=== PATIENT | female | born 1990 | race Caucasian/White ===

== ENCOUNTER 2019-10-20 18:11 | Emergency (ER) | payer BC ==
[~2019-10-20] VITALS: Ht 160 cm; Wt 56.7 kg
--- NOTE | 2019-10-20 18:13 | NUR ---
PT IS IN ROOM #2B UNDER DIRECT OBSERVATION OF DILSAHD WALLACE. DR SILVERIO EVALUATED THE PT.
--- NOTE | 2019-10-20 18:36 | NUR ---
DR COATES TALKED TO THE PT.
[2019-10-20 19:02] LABS: BASOPHILS % (AUTO) 0.3 % (0.0-2.0); EOSINOPHILS % (AUTO) 0.2 % (0.0-7.0); HEMATOCRIT 37.5 % (31.2-41.9); HEMOGLOBIN 12.6 g/dL (10.9-14.3); LYMPHOCYTES # (AUTO) 1.7 K/uL (20.0-40.0); LYMPHOCYTES % (AUTO) 19.3 % (20.5-51.5); MEAN CORPUSCULAR HEMOGLOBIN 30.3 uug (24.7-32.8); MEAN CORPUSCULAR HGB CONC 34 g/dL (32.3-35.6); MEAN CORPUSCULAR VOLUME 90.2 fL (75.5-95.3); MONOCYTES # (AUTO) 0.6 K/uL (2.0-10.0); MONOCYTES % (AUTO) 7.1 % (0.0-11.0); NEUTROPHILS # (AUTO) 6.3 K/uL (1.8-8.9); NEUTROPHILS % (AUTO) 73.1 % (38.5-71.5); PLATELET COUNT (AUTO) 283 K/uL (179-408); RED BLOOD CELL COUNT(AUTO) 4.15 MIL/uL (3.63-4.92); WHITE BLOOD COUNT (AUTO) 8.7 K/uL (3.8-11.8)
[2019-10-20 19:09] LABS: CARBON DIOXIDE 30 mmol/L (21-32); CHLORIDE 102 mmol/L (98-107); POTASSIUM 3.5 mmol/L (3.5-5.1)
[2019-10-20 19:15] LABS: ALANINE AMINOTRANSFERASE 14 U/L (14-59); ALKALINE PHOSPHATASE 45 U/L (50-136); ASPARTATE AMINOTRANSFERASE 12 U/L (15-37); BILIRUBIN,DIRECT 0.1 mg/dL (0.0-0.2); BILIRUBIN,TOTAL 0.6 mg/dL (0.2-1.0); CREATININE 0.8 mg/dL (0.6-1.3); GLUCOSE 100 mg/dL (74-106); TOTAL PROTEIN, SERUM 7.5 g/dL (6.4-8.2); UREA NITROGEN, BLOOD 7 mg/dL (7-18)
[2019-10-20] MEDS ORDERED: IV NORMAL SALINE 1000 ML BAG IV ONE (19:15)
[2019-10-20 19:16] LABS: ACETAMINOPHEN < 2.0 ug/mL (10-30)
--- NOTE | 2019-10-20 19:17 | NUR ---
REPORT GIVEN TO SOCIAL SERVICE LIAISON DILSHAD DRIVER.
[2019-10-20 19:19] LABS: ETHANOL < 3 MG/DL (0-0)
--- NOTE | 2019-10-20 19:45 | NUR ---
Andreas Krishna at bedside to evaluate patient
--- NOTE | 2019-10-20 21:30 | NUR ---
Patient sleeping but easily arousable. Patient A&O x3. Breathing even and unlabored. Denies any pain or discomfort at this time
--- NOTE | 2019-10-20 23:05 | NUR ---
Spoke with Mayito from central intake. per Mayito, no beds available at this time. will call back when a bed becomes available
--- NOTE | 2019-10-21 00:30 | NUR ---
Patient AAOx4. offered fluids. patient declined. patient states she wants to go to sleep. suicide precautions still implemented. 1:1 sitter at bedside. s/r up x2. bed low. Denies any pain or discomfort at this time
--- NOTE | 2019-10-21 02:48 | NUR ---
1:1 still at bedside at this time.
--- NOTE | 2019-10-21 02:48 | NUR ---
Patient AA&O x4. Patient able to recall some information about what happened FUR GRADER to ED. offered fluids and able to tolerate. Speech is clear and able to make needs known / follow commands. Denies any pain or discomfort at this time
--- NOTE | 2019-10-21 04:49 | NUR ---
Patient sleeping but easily arousable. Breathing even and unlabored. NAD noted. no 1:1 sitter available. frequent visual check done.
--- NOTE | 2019-10-21 05:20 | NUR ---
transferred to room 3a, NEAR NURSES' STATION pt awake and alert RA DILIP STILL ON 5150 HOLD FOR SI 1ON1 SITTER AT BEDSIDE PT STATES SHE WANTS TO BE RE-EVALUATED IN THE MORNING PT STATES SHE HAS A FLIGHT ON SATURDAY REORIENTED REDIRECTED KEPT WARM DRY AND COMFORTABLE
--- NOTE | 2019-10-21 05:32 | NUR ---
MIRANDA GALDAMEZ(PLACEMENT) ON THE PHONE WITH OWEN YUNG
--- NOTE | 2019-10-21 05:54 | NUR ---
RADHA LOVE ON THE PHONE ([facility]) [phone] RECEIVING PHYSICIAN: DR PUGH PENDING S
--- NOTE | 2019-10-21 06:06 | NUR ---
Spoke with Karen from [facility] to transport patient approx [phone]. Trip #[id number]
--- NOTE | 2019-10-21 06:06 | NUR ---
Spoke with Nikko for patient to be admitted to [facility], [place] under care of Dr. Palafox
[2019-10-21 06:30] LABS: *BILIRUBIN,URIN NEGATIVE (NEGATIVE); *BLOOD, URINE NEGATIVE (NEGATIVE); *CLARITY,URINE SLIGHTLY CLOUDY (CLEAR); *COLOR,URINE YELLOW (YELLOW); *KETONES,URINE NEGATIVE (NEGATIVE); *UROBILINOGEN,URINE 0.2 E.U./dl (NORMAL); LEUKOCYTE ESTERASE ,URINE NEGATIVE (NEGATIVE); NITRITE, URINE NEGATIVE (NEGATIVE); UGLUCOSE NEGATIVE (NEGATIVE)
[2019-10-21 06:35] LABS: *URINE HCG, QUAL NEGATIVE (NEGATIVE)
[2019-10-21 06:47] LABS: BACTERIA,URINE MODERATE /HPF (NONE SEEN); MUCUS,URINE MODERATE /LPF (0-FEW); RBC,URINE NONE SEEN /HPF (0-3); SQUAMOUS EPITHELIAL CELL,UR MODERATE /HPF (NONE SEEN); WBC,URINE 0-3 /HPF (0-3)
--- NOTE | 2019-10-21 07:01 | NUR ---
MARY RAYA ON THE PHONE WITH ERM PER PT REQUEST FOR RE-EVALUATION THIS MORNING
--- NOTE | 2019-10-21 07:10 | NUR ---
MARY RAYA STATES FOR PT TO REMAIN ON 5150 H STILL TO BE PICKED UP AT 0730 HAND OFF AND SBAR GIVEN TO INCOMING DAY SHIFT RN SI PREC STILL IN PLACE
[2019-10-21 07:29] LABS: *AMPHETAMINE, URINE NEGATIVE (NEGATIVE); *BARBITURATE, URINE NEGATIVE (NEGATIVE); *CANNABINOID, URINE NEGATIVE (NEGATIVE); *COCCAINE, URINE NEGATIVE (NEGATIVE); *OPIATE, URINE NEGATIVE (NEGATIVE); *PHENCYCLIDINE SCREEN,URINE NEGATIVE (NEGATIVE)
--- NOTE | 2019-10-21 07:35 | NUR ---
Hospital breakfast tray provided, Pt ate w/ moderate appetite.
--- NOTE | 2019-10-21 08:02 | NUR ---
Report given to transport consulting it architect. Pt left ER in stable condition, all pt's belongings given to [facility] transfering personel.
== END 2019-10-21 08:15 | disposition short-term general hospital (02) ==
LOC: ER 18:15
DX: Z04.6 Encounter for general psychiatric examination, requested by authority (principal); F32.9 Major depressive disorder, single episode, unspecified
CPT/HCPCS: 36415; 71045; 80048; 80076; 80307; 81000; 81001; 84703; 85025; 87086; 93005; 99285; G0480 ×2; G0481; A4663; J7030